=== PATIENT | male | born 1955 | race Caucasian/White ===

== ENCOUNTER 2021-09-30 15:04 | Observation (INO) | payer OTHER ==
[~2021-09-30] VITALS: Ht 175.3 cm; Wt 66.0 kg
[2021-09-30 15:07] VITALS: BP_SYST 124
--- NOTE | 2021-09-30 15:18 | NUR ---
Triaged pt and pt placed in waiting room until a bed becomes available. A&Ox4. VSS. Dr. Wilson made aware.
--- NOTE | 2021-09-30 15:19 | NUR ---
EKG performed at by Ilana FREEMAN. Physician given copy of EKG for review.
[2021-09-30 15:46] LABS: BASOPHILS % (AUTO) 0.3 % (0.0-2.0); EOSINOPHILS # (AUTO) 0.1 K/uL (0.0-0.4); HEMATOCRIT 39.9 % (36-54); HEMOGLOBIN 13.3 g/dL (14.0-18.0); LYMPHOCYTES # (AUTO) 1.8 K/uL (1.0-5.5); LYMPHOCYTES % (AUTO) 25.6 % (20.5-51.5); MEAN CORPUSCULAR HEMOGLOBIN 29 pg (27-31); MEAN CORPUSCULAR HGB CONC 33 % (32-36); MEAN CORPUSCULAR VOLUME 87 fL (79.0-98.0); MONOCYTES # (AUTO) 0.6 K/uL (0.0-1.0); MONOCYTES % (AUTO) 8.9 % (1.7-9.3); NEUTROPHILS # (AUTO) 4.5 K/uL (1.8-7.7); NEUTROPHILS % (AUTO) 63.2 % (40.0-70.0); PLATELET COUNT (AUTO) 519 K/uL (130-430); RED BLOOD CELL COUNT(AUTO) 4.59 MIL/uL (4.2-6.2); WHITE BLOOD COUNT (AUTO) 7.1 K/uL (4.8-10.8)
[2021-09-30 16:06] LABS: ANION GAP 7 (5-15); CALCIUM 9.6 mg/dL (8.4-11.0); CHLORIDE 102 mmol/L (98-107); CREATININE 1.35 mg/dL (0.55-1.30); GLUCOSE 100 mg/dL (70-99); POTASSIUM 4.2 mmol/L (3.5-5.1); SODIUM SERUM 139 mmol/L (136-145); UREA NITROGEN, BLOOD 23 mg/dL (8-21)
[2021-09-30 16:12] LABS: GFR AFRICAN AMERICAN 68 mL/min (>90)
[2021-09-30 16:14] LABS: ALANINE AMINOTRANSFERASE 16 U/L (12-78); ALBUMIN 3.5 g/dL (3.4-4.8); ASPARTATE AMINOTRANSFERASE 16 U/L (10-37); TOTAL BILIRUBIN 0.6 mg/dL (0.0-1.0)
--- NOTE | 2021-09-30 16:27 | NUR ---
Placed in room 04 . Placed on library monitor, blood pressure machine and pulse oximeter. To gown for exam. Side rails up.
--- NOTE | 2021-09-30 16:44 | NUR ---
65 YR OLD AMLE AOX4, AMBULATORY WITH COMPLAINT OF CHEST PAIN 7/10 THAT TRAVEKLS DOWN HIS RIGHT ARM WITH TINGLING. PT REPORTS RECENT MITRAL VALVE REPAIR SURGERY AND PT STATES HE WAS CONCERNED. PT IS PLEASANT AND STATES THE PAIN IS LESS INTENSE AT THIS TIME. PT REMAINS ON THE CARDIAC MACHINE FOR CLOSE MONITORING. MD MALLOY AT THE BEDSIDE.
--- NOTE | 2021-09-30 19:39 | NUR ---
pt in bed resting, family member at the bedside. pt pending disposition
[2021-09-30] MEDS ORDERED: ASPIRIN 325 MG TABLET PO ONE (20:15)
--- NOTE | 2021-09-30 22:05 | NUR ---
Admit bed requested Patient will be admitted to care of Admitted to Telemetry-Observation unit. Diagnosis Chest pain Inpatient (Yes or No) no Observation (Yes or No) yes Orientation concerns or request close to nursing station (Yes or No) no Covid Status pending On vent or bipap no Isolation requirements no Needs a sitter no From Home (Yes or if No enter name of facility) yes Requires Dialysis (Yes or No) no Med Rec Completed (Yes of No) yes
[2021-09-30] MEDS ORDERED: DOCUSATE SODIUM 100 MG CAPSULE PO PRN (22:45)
[2021-09-30] MEDS ORDERED: ZOLPIDEM TARTRATE 5 MG TABLET PO PRN (22:45)
[2021-09-30] MEDS ORDERED: NALOXONE HCL 0.4 MG/ML AMP (NARCAN) IVP PRN ×2 (22:45)
[2021-09-30] MEDS ORDERED: MORPHINE 2 MG/ML INJ. SYRINGE IVP PRN (22:45)
[2021-09-30] MEDS ORDERED: LORazepam 2 MG/ML VIAL IVP PRN (22:45)
[2021-09-30] MEDS ORDERED: ONDANSETRON HCL 4 MG/2 ML VIAL IVP PRN (22:45)
[2021-09-30] MEDS ORDERED: POTASSIUM CHLORIDE 20 MEQ TAB.PRT.SR PO PRN (22:45)
[2021-09-30] MEDS ORDERED: MUPIROCIN 2% TOPICAL OINTMENT 22 GM NS PRN (22:45)
[2021-09-30] MEDS ORDERED: ACETAMINOPHEN 325 MG TABLET PO PRN (22:45)
[2021-09-30] MEDS ORDERED: MAGNESIUM SULFATE 50 ML IV PRN (22:45)
--- NOTE | 2021-10-01 00:30 | NUR ---
# 20 gauge angiocath placed to right forearm. Use of asceptic technique. Opsite placed over site. Blood return noted. Blood for lab drawn from site. Flushed with 10 cc of normal saline. No evidence of infiltration noted. Patient tolerated well.
[2021-10-01] MEDS: MORPHINE 2 MG/ML INJ. SYRINGE IVP PRN ×2 (00:36→12:02)
--- NOTE | 2021-10-01 01:49 | NUR ---
REPORT GIVEN TO LYDIA YAN. ALL QUESTIONS ANSWERED. PT IN STABLE CONDITION
[2021-10-01 02:05] VITALS: BP_SYST 102
--- NOTE | 2021-10-01 02:18 | NUR ---
ADMISSION OF A 65 YEAR OLD PATIENT FROM HOME WITH CHEST PAIN ON RIGHT LATERAL PECTORAL AND RIB CAGE REGION. SAYS IT WAS SHARP. ADVISED BY HIS CARDIOTHORACIC SURGERY TEAM (DOCTOR JETT) FROM [facility] PER HIS REPORT TO GO TO HOSPITAL. JASMYNE THOMAS RN
--- NOTE | 2021-10-01 03:46 | NUR ---
PATIENT REQUEST FOR SLEEPING MEDICATION. EDUCATION PROVIDED REGARDING HOUR OF SLEEP REQUEST VERSUS EARLY AM DOSE. DIMMED OVER BED LIGHTS, DOOR PULLED CLOSER TO CLOSED POSITION. DISCUSSION IF PATIENT HAS ANY PAIN OR ANXIETY. PATIENT DENIES AT THIS TIME. JASMYNE THOMAS RN
[2021-10-01 05:34] VITALS: BP_SYST 96
[2021-10-01] MEDS: NACL 0.9% 1,000 ML IV SCH ×2 (05:47→12:03)
--- NOTE | 2021-10-01 05:56 | NUR ---
CONSULTATION PAGED/CALLED Reason for Consultation: CHEST PAIN Person Who was Notified:JOSE DANIEL Consulting Physician: Molly ROBERT Home Theater Installer Specialty: Ordering Physician: TIMI
[2021-10-01 06:51] LABS: CALCIUM 8.5 mg/dL (8.4-11.0); CREATININE 1.11 mg/dL (0.55-1.30); THYROID STIMULATING HORMONE 6.22 uIu/mL (0.36-3.74)
[2021-10-01 07:17] LABS: HEMATOCRIT 36.5 % (36-54); HEMOGLOBIN 12.4 g/dL (14.0-18.0); MEAN CORPUSCULAR HEMOGLOBIN 30 pg (27-31); MEAN CORPUSCULAR HGB CONC 34 % (32-36); MEAN CORPUSCULAR VOLUME 87 fL (79.0-98.0); PLATELET COUNT (AUTO) 404 K/uL (130-430); RED BLOOD CELL COUNT(AUTO) 4.19 MIL/uL (4.2-6.2); WHITE BLOOD COUNT (AUTO) 5.6 K/uL (4.8-10.8)
[2021-10-01 07:37] VITALS: BP_SYST 106
[2021-10-01] MEDS ORDERED: ENOXAPARIN SODIUM 40 MG/0.4 ML SYRINGE SUBCUT SCH (09:00)
[2021-10-01] MEDS ORDERED: ASPI-1393 PO (10:49)
[2021-10-01] MEDS ORDERED: FURO-150 PO (10:50)
[2021-10-01] MEDS ORDERED: LEVO750T45 PO (10:50)
[2021-10-01 10:51] LABS: BASOPHILS % (MANUAL) 0 % (0-2); EOSINOPHILS % (MANUAL) 6 % (0-7); LYMPHOCYTES % (MANUAL) 30 % (20-46); MONOCYTES % (MANUAL) 7 % (0-11)
[2021-10-01] MEDS ORDERED: COLC0.6T67 PO (10:51)
[2021-10-01] MEDS ORDERED: GABA-529 PO (10:51)
[2021-10-01] MEDS ORDERED: AMIO100T4 PO (10:51)
[2021-10-01] MEDS ORDERED: POTA-88 PO (10:52)
[2021-10-01] MEDS ORDERED: OMEP20CA15 PO (10:53)
[2021-10-01 10:55] VITALS: BP_SYST 106
[2021-10-01 12:35] VITALS: BP_SYST 105
[2021-10-01 16:55] VITALS: BP_SYST 106
--- NOTE | 2021-10-01 19:00 | NUR ---
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 DISCHARGE INSTRUCTIONS GIVEN TO PATIENT. VERBALIZED UNDERSTANDING.
--- NOTE | 2021-10-01 19:25 | NUR ---
RN NOTES:PATIENT DISCHARGED. NOT IN DISTRESS. NOT IN PAIN. WHEELED OUT TO LOBBY WITH FAMILY. DISCHARGED STABLE.
--- NOTE | 2021-10-14 16:43 | NUR ---
LATE ENTRY: IV ADMINISTRATION END TIME (Observation Patients ONLY): IV infusion of Sodium Chloride started at 0547 and ended at 1947 on October 01, 2021.
== END 2021-10-01 23:07 | disposition home or self-care (01) ==
LOC: SED 15:04 → STU 22:02
PROVIDERS: ADMIT General Practice; ATTEND General Practice
DX: R07.89 Other chest pain (principal); Z20.822 Contact with and (suspected) exposure to COVID-19; I10 Essential (primary) hypertension; K21.9 Gastro-esophageal reflux disease without esophagitis; D64.9 Anemia, unspecified; N17.9 Acute kidney failure, unspecified; Z95.4 Presence of other heart-valve replacement; Z79.899 Other long term (current) drug therapy
CPT/HCPCS: 99285; 80053; 83880; 85025; 84484 ×2; 36415 ×2; 93005 ×2; 71045; 87426; 96361; 96374; 96376; 85027; 80048; 83735; 84443; 85007; 83036; 96372; J1650; J2270; G0378

== ENCOUNTER 2022-06-20 12:13 | Emergency (ER) | payer OTHER ==
[~2022-06-20] VITALS: Ht 177.8 cm; Wt 68.0 kg
[~2022-06-20 12:13] MED LIST: AMIO100T4 PO; ASPI-1393 PO; COLC0.6T67 PO; FURO-150 PO; GABA-529 PO; LEVO750T64 PO; OMEP20CA15 PO; POTA-88 PO
[2022-06-20 12:29] VITALS: BP_SYST 126
== END 2022-06-20 13:44 | disposition home or self-care (01) ==
LOC: SED 12:13
DX: S31.823A Puncture wound without foreign body of left buttock, initial encounter (principal); K64.4 Residual hemorrhoidal skin tags; Z88.1 Allergy status to other antibiotic agents; Z79.899 Other long term (current) drug therapy; X58.XXXA Exposure to other specified factors, initial encounter; Y93.89 Activity, other specified; Y92.89 Other specified places as the place of occurrence of the external cause; Y99.8 Other external cause status
CPT/HCPCS: 99282

== ENCOUNTER 2022-12-11 18:36 | Inpatient (IN) | payer OTHER ==
[~2022-12-11] VITALS: Ht 175.3 cm; Wt 73.0 kg
[2022-12-11 18:48] VITALS: BP_SYST 148; PULSE 70; RESP 24; TEMP 98; O2SAT 99
[2022-12-11] MEDS ORDERED: KETOROLAC TROMETHAMINE 30 MG VIAL ONE (18:56)
[2022-12-11] MEDS ORDERED: ONDANSETRON HCL 4 MG/2 ML VIAL ONE (18:56)
[2022-12-11] MEDS ORDERED: NACL 0.9% 1,000 ML IV ONE ×2 (19:00→20:15)
[2022-12-11] MEDS ORDERED: KETOROLAC TROMETHAMINE 30 MG VIAL IVP ONE (19:00)
[2022-12-11] MEDS ORDERED: ONDANSETRON HCL 4 MG/2 ML VIAL IVP ONE ×2 (19:00→20:15)
[2022-12-11 19:10] LABS: BASOPHILS # (AUTO) 0.1 K/uL (0.0-0.2); BASOPHILS % (AUTO) 1.5 % (0.0-2.0); EOSINOPHILS # (AUTO) 0.1 K/uL (0.0-0.4); EOSINOPHILS % (AUTO) 1.5 % (0.0-4.0); HEMATOCRIT 46.5 % (36-54); HEMOGLOBIN 15.6 g/dL (14.0-18.0); LYMPHOCYTES # (AUTO) 2.4 K/uL (1.0-5.5); MEAN CORPUSCULAR HEMOGLOBIN 31 pg (27-31); MEAN CORPUSCULAR HGB CONC 34 % (32-36); MEAN CORPUSCULAR VOLUME 92 fL (79.0-98.0); MONOCYTES # (AUTO) 0.8 K/uL (0.0-1.0); MONOCYTES % (AUTO) 10.8 % (1.7-9.3); NEUTROPHILS # (AUTO) 4.3 K/uL (1.8-7.7); NEUTROPHILS % (AUTO) 55.2 % (40.0-70.0); PLATELET COUNT (AUTO) 342 K/uL (130-430); RED BLOOD CELL COUNT(AUTO) 5.09 MIL/uL (4.2-6.2); RED CELL DISTRIBUTION WIDTH 14.4 % (9.0-15.0); WHITE BLOOD COUNT (AUTO) 7.7 K/uL (4.8-10.8)
[2022-12-11 19:32] LABS: ALBUMIN 3.9 g/dL (3.4-4.8); CREATININE 0.93 mg/dL (0.55-1.30); POTASSIUM 4.2 mmol/L (3.5-5.1); TOTAL BILIRUBIN 0.5 mg/dL (0.0-1.0); TOTAL PROTEIN, SERUM 7.1 g/dL (6.4-8.3)
[2022-12-11] MEDS ORDERED: MORPHINE 4 MG INJ. 4 MG/ML VIAL IVP ONE (20:15)
[2022-12-11 20:28] LABS: BILIRUBIN,URINE NEGATIVE (NEGATIVE); CLARITY/URINE Slightly Cloudy (CLEAR); COLOR,URINE YELLOW (YELLOW); GLUCOSE,URINE NEGATIVE (NEGATIVE); KETONES,URINE NEGATIVE (NEGATIVE); NITRITE, URINE NEGATIVE (NEGATIVE); PROTEIN URINE NEGATIVE (NEGATIVE); UROBILINOGEN,URINE 0.2 (0.2-1.0)
[2022-12-11 20:31] LABS: BLOOD, URINE TRACE (NEGATIVE); LEUKOCYTE ESTERASE ,URINE NEGATIVE (NEGATIVE)
[2022-12-11 20:36] LABS: BACTERIA,URINE RARE /HPF (None Seen); MUCUS,URINE 1+ /LPF (None Seen); URINE AMORPHOUS PHOSPHATES 1+ /HPF (None Seen); WBC,URINE 0-3 /HPF (0-3)
[2022-12-11] MEDS ORDERED: TAMSULOSIN HCL 0.4 MG CAP PO SCH (21:15)
[2022-12-11 23:25] VITALS: BP_SYST 127; PULSE 80; RESP 18; TEMP 96.2
[2022-12-12] MEDS: KETOROLAC TROMETHAMINE 15 MG VIAL IVP PRN ×3 (01:07→17:07)
[2022-12-12] MEDS: 0.45% NACL 1,000 ML IV SCH ×4 (02:11→23:52)
[2022-12-12 06:57] LABS: CALCIUM 8.6 mg/dL (8.4-11.0); CREATININE 0.9 mg/dL (0.55-1.30); POTASSIUM 4.8 mmol/L (3.5-5.1)
[2022-12-12 08:26] VITALS: BP_SYST 127; PULSE 54; RESP 18; TEMP 97.9; O2SAT 96
[2022-12-12] MEDS: TAMSULOSIN HCL 0.4 MG CAP PO SCH (09:13)
[2022-12-12 11:42] VITALS: BP_SYST 117; PULSE 59; RESP 18; TEMP 97.7; O2SAT 99
[2022-12-12 17:30] VITALS: BP_SYST 121; PULSE 59; RESP 19; TEMP 98.8; O2SAT 98
[2022-12-12 19:30] VITALS: O2SAT 98
[2022-12-12 20:00] VITALS: BP_SYST 119; PULSE 56; RESP 17; TEMP 98.1; O2SAT 98
[2022-12-12] MEDS: CITRIC ACID/SODIUM CITRATE 30 ML UDC PO SCH (20:52)
[2022-12-12] MEDS: PHENAZOPYRIDINE HCL 100 MG TABLET PO SCH (20:53)
[2022-12-12] MEDS ORDERED: DIPHENHYDRAMINE HCL 50 MG CAPSULE PO PRN (22:00)
[2022-12-12] MEDS ORDERED: KETOROLAC TROMETHAMINE 15 MG VIAL IVP PRN (22:00)
[2022-12-12] MEDS ORDERED: DIPHENHYDRAMINE HCL 25 MG CAPSULE PO PRN (23:30)
[2022-12-12] MEDS ORDERED: DIPHENHYDRAMINE PO PRN (23:30)
[2022-12-13 00:56] VITALS: BP_SYST 118; PULSE 56; RESP 18; TEMP 97.3; O2SAT 96
[2022-12-13] MEDS: 0.45% NACL 1,000 ML IV SCH (05:45)
[2022-12-13 06:57] LABS: BASOPHILS # (AUTO) 0.1 K/uL (0.0-0.2); BASOPHILS % (AUTO) 1.1 % (0.0-2.0); EOSINOPHILS # (AUTO) 0.2 K/uL (0.0-0.4); EOSINOPHILS % (AUTO) 2.9 % (0.0-4.0); HEMATOCRIT 42.4 % (36-54); HEMOGLOBIN 14.1 g/dL (14.0-18.0); LYMPHOCYTES # (AUTO) 2.4 K/uL (1.0-5.5); LYMPHOCYTES % (AUTO) 40.6 % (20.5-51.5); MEAN CORPUSCULAR HEMOGLOBIN 31 pg (27-31); MEAN CORPUSCULAR HGB CONC 33 % (32-36); MEAN CORPUSCULAR VOLUME 92 fL (79.0-98.0); MONOCYTES # (AUTO) 0.5 K/uL (0.0-1.0); MONOCYTES % (AUTO) 8.4 % (1.7-9.3); NEUTROPHILS # (AUTO) 2.7 K/uL (1.8-7.7); PLATELET COUNT (AUTO) 282 K/uL (130-430); RED BLOOD CELL COUNT(AUTO) 4.62 MIL/uL (4.2-6.2); RED CELL DISTRIBUTION WIDTH 13.9 % (9.0-15.0); WHITE BLOOD COUNT (AUTO) 5.8 K/uL (4.8-10.8)
[2022-12-13 07:13] LABS: CALCIUM 8.6 mg/dL (8.4-11.0); CREATININE 0.91 mg/dL (0.55-1.30); POTASSIUM 4.3 mmol/L (3.5-5.1)
[2022-12-13] MEDS ORDERED: POTA15TA6 PO (08:22)
[2022-12-13] MEDS: PHENAZOPYRIDINE HCL 100 MG TABLET PO SCH ×2 (09:41→13:13)
[2022-12-13] MEDS: TAMSULOSIN HCL 0.4 MG CAP PO SCH (09:41)
[2022-12-13] MEDS: CITRIC ACID/SODIUM CITRATE 30 ML UDC PO SCH (09:41)
[2022-12-13 15:44] VITALS: BP_SYST 127; PULSE 65; RESP 16; TEMP 97.2; O2SAT 96
[2022-12-14 06:45] LABS: COLLECTION TIME,URINE 24 HR; TOTAL VOLUME 24HRS,URINE 4325 mL
[2022-12-14 06:46] LABS: SODIUM TIMED,URINE 71 mmol/L; SODIUM URINE, 24HR CALC 307 mmol/24H (40-220)
[2022-12-14 06:48] LABS: TPROTEIN U,24HR 86.5 mg/24HR (0-130)
== END 2022-12-13 16:05 | disposition home or self-care (01) | DRG 694 ==
LOC: SED 18:36 → SMU 21:39
PROVIDERS: ADMIT Specialist; ATTEND Specialist
DX: N13.2 Hydronephrosis with renal and ureteral calculous obstruction (principal); Z79.82 Long term (current) use of aspirin; Z79.899 Other long term (current) drug therapy
CPT/HCPCS: 36415; 74018; 76376; 76857; 80048; 80053; 81000; 81003; 83690; 84156; 84300-TC; 84560; 85025; 96361; 96374; 96375; 96376; 99285; J1885; J2270; J2405; J7030; Q0163

== ENCOUNTER 2023-01-29 07:17 | Emergency (ER) | payer OTHER ==
[~2023-01-29] VITALS: Ht 175.3 cm; Wt 79.4 kg
[~2023-01-29 07:17] MED LIST changes: -COLC0.6T67 PO; -FURO-150 PO; -GABA-529 PO; -POTA-88 PO; +POTA15TA6 PO
[2023-01-29 07:20] VITALS: BP_SYST 157; PULSE 74; RESP 18; TEMP 97.8; O2SAT 96
[2023-01-29] MEDS ORDERED: KETOROLAC TROMETHAMINE 30 MG VIAL IVP ONE (07:45)
[2023-01-29] MEDS ORDERED: NACL 0.9% 1,000 ML IV ONE (07:45)
[2023-01-29 07:49] LABS: BASOPHILS # (AUTO) 0.1 K/uL (0.0-0.2); BASOPHILS % (AUTO) 1.4 % (0.0-2.0); EOSINOPHILS # (AUTO) 0.1 K/uL (0.0-0.4); HEMATOCRIT 45.6 % (36-54); HEMOGLOBIN 15.2 g/dL (14.0-18.0); LYMPHOCYTES # (AUTO) 2.1 K/uL (1.0-5.5); LYMPHOCYTES % (AUTO) 31.9 % (20.5-51.5); MEAN CORPUSCULAR HEMOGLOBIN 30 pg (27-31); MEAN CORPUSCULAR HGB CONC 33 % (32-36); MEAN CORPUSCULAR VOLUME 91 fL (79.0-98.0); MONOCYTES # (AUTO) 0.6 K/uL (0.0-1.0); MONOCYTES % (AUTO) 9.6 % (1.7-9.3); NEUTROPHILS # (AUTO) 3.7 K/uL (1.8-7.7); NEUTROPHILS % (AUTO) 55.1 % (40.0-70.0); PLATELET COUNT (AUTO) 303 K/uL (130-430); RED CELL DISTRIBUTION WIDTH 14.1 % (9.0-15.0); WHITE BLOOD COUNT (AUTO) 6.7 K/uL (4.8-10.8)
[2023-01-29 08:10] LABS: CALCIUM 9.9 mg/dL (8.4-11.0); CREATININE 1.09 mg/dL (0.55-1.30)
[2023-01-29 08:15] LABS: ALBUMIN 3.9 g/dL (3.4-4.8); TOTAL BILIRUBIN 0.5 mg/dL (0.0-1.0)
[2023-01-29] MEDS ORDERED: MORPHINE 4 MG INJ. 4 MG/ML VIAL IVP ONE (08:30)
[2023-01-29 08:36] LABS: BILIRUBIN,URINE NEGATIVE (NEGATIVE); BLOOD, URINE NEGATIVE (NEGATIVE); CLARITY/URINE CLEAR (CLEAR); COLOR,URINE YELLOW (YELLOW); GLUCOSE,URINE NEGATIVE (NEGATIVE); KETONES,URINE NEGATIVE (NEGATIVE); LEUKOCYTE ESTERASE ,URINE NEGATIVE (NEGATIVE); NITRITE, URINE NEGATIVE (NEGATIVE); PH,URINE 6.5 (5.0-8.0); PROTEIN URINE NEGATIVE (NEGATIVE); UROBILINOGEN,URINE 0.2 (0.2-1.0)
[2023-01-29] MEDS ORDERED: KETO10TA2 PO (09:55)
[2023-01-29] MEDS ORDERED: HYDR-3917 PO (09:55)
[2023-01-29] MEDS ORDERED: TAMS-11 PO (09:55)
[2023-01-29 10:07] VITALS: BP_SYST 137; PULSE 62; RESP 16; TEMP 97.3; O2SAT 98
== END 2023-01-29 10:06 | disposition home or self-care (01) ==
LOC: SED 07:17
DX: N20.1 Calculus of ureter (principal); R10.32 Left lower quadrant pain; Z88.1 Allergy status to other antibiotic agents; Z79.899 Other long term (current) drug therapy
CPT/HCPCS: 99285; 74176; 96374; 96361; 96375; 80053; 81001; 85025; 36415; 76376; 81003; J1885; J2270; J7030

== ENCOUNTER 2023-10-24 17:06 | Emergency (ER) | payer OTHER ==
[~2023-10-24] VITALS: Ht 175.3 cm; Wt 70.8 kg
[~2023-10-24 17:06] MED LIST changes: +HYDR-3917 PO; +KETO10TA2 PO; +TAMS-11 PO
[2023-10-24 17:55] VITALS: BP_SYST 115; BP_SYST 135; PULSE 102; PULSE 80; RESP 17; TEMP 97.8; O2SAT 98
[2023-10-24] MEDS: MORPHINE 4 MG INJ. 4 MG/ML VIAL IM ONE (18:27)
[2023-10-24 18:33] LABS: BASOPHILS # (AUTO) 0.2 K/uL (0.0-0.2); BASOPHILS % (AUTO) 1.4 % (0.0-2.0); HEMOGLOBIN 16.1 g/dL (14.0-18.0); LYMPHOCYTES # (AUTO) 0.7 K/uL (1.0-5.5); LYMPHOCYTES % (AUTO) 5.1 % (20.5-51.5); MEAN CORPUSCULAR HEMOGLOBIN 31 pg (27-31); MEAN CORPUSCULAR HGB CONC 34 % (32-36); MEAN CORPUSCULAR VOLUME 91 fL (79.0-98.0); MONOCYTES # (AUTO) 0.5 K/uL (0.0-1.0); NEUTROPHILS # (AUTO) 11.9 K/uL (1.8-7.7); NEUTROPHILS % (AUTO) 89.5 % (40.0-70.0); PLATELET COUNT (AUTO) 312 K/uL (130-430); RED BLOOD CELL COUNT(AUTO) 5.14 MIL/uL (4.2-6.2); RED CELL DISTRIBUTION WIDTH 14.2 % (9.0-15.0); WHITE BLOOD COUNT (AUTO) 13.3 K/uL (4.8-10.8)
[2023-10-24 18:33] LABS: BILIRUBIN,URINE NEGATIVE (NEGATIVE); BLOOD, URINE 3+ (NEGATIVE); COLOR,URINE YELLOW (YELLOW); GLUCOSE,URINE NEGATIVE (NEGATIVE); KETONES,URINE 1+ (NEGATIVE); LEUKOCYTE ESTERASE ,URINE NEGATIVE (NEGATIVE); NITRITE, URINE NEGATIVE (NEGATIVE); PROTEIN URINE TRACE (NEGATIVE); UROBILINOGEN,URINE 0.2 (0.2-1.0)
[2023-10-24 18:40] LABS: CLARITY/URINE HAZY (CLEAR)
[2023-10-24 18:50] LABS: BACTERIA,URINE FEW /HPF (None Seen); FINE GRANULAR CASTS,URINE 0-10 /LPF (None Seen); MUCUS,URINE 2+ /LPF (None Seen); RBC,URINE 50-80 /HPF (0-3)
[2023-10-24 18:53] LABS: ALBUMIN 4.8 g/dL (3.4-4.8); BILIRUBIN,DIRECT 0.2 mg/dL (0.0-0.3); CALCIUM 10.4 mg/dL (8.4-11.0); CREATININE 1.18 mg/dL (0.55-1.30); POTASSIUM 4.1 mmol/L (3.5-5.1); TOTAL PROTEIN, SERUM 7.8 g/dL (6.4-8.3)
[2023-10-24] MEDS ORDERED: TAMS-11 PO (21:20)
[2023-10-24] MEDS ORDERED: PERC10 PO (21:21)
[2023-10-24] MEDS: OXYCODONE/ACETAMINOPHEN 5-325 TABLET PO ONE (21:44)
[2023-10-24 21:46] VITALS: BP_SYST 147; PULSE 80; RESP 16; TEMP 98.2; O2SAT 97
== END 2023-10-24 21:46 | disposition home or self-care (01) ==
LOC: SED 17:06
DX: R10.9 Unspecified abdominal pain (principal); R11.2 Nausea with vomiting, unspecified; R31.9 Hematuria, unspecified; Z95.4 Presence of other heart-valve replacement; Z88.1 Allergy status to other antibiotic agents; Z79.899 Other long term (current) drug therapy; Z79.2 Long term (current) use of antibiotics
CPT/HCPCS: 99285; 74176; 80076; 80048; 81001; 83690; 85025; 36415; 96372; J2270; 81000; 81015